=== PATIENT | female | born 1960 | race Caucasian/White ===

== ENCOUNTER 2020-11-27 14:11 | Observation (INO) | payer SELFPAY ==
[2020-11-27 15:00] LABS: #Basophils 0.1 thou/uL (0.0-0.2); #Eosinphils 0.1 thou/uL (0.0-0.7); #Lymphocytes 1.9 thou/uL (1.20-3.40); #Monocytes 0.6 thou/uL (0.11-0.59); #Neutrophils 4.4 thou/uL (1.40-6.50); %Basophils 1.2 % (0.0-1.0); %Eosinophils 0.7 % (0.0-10.0); %Lymphocytes 26.9 % (21.0-51.0); %Monocytes 8.8 % (0.0-10.0); %Neutrophils 62.4 % (42.0-75.0); Hemoglobin 14.1 g/dL (12.0-16.0); Mean Corpuscular HGB CONC 35.6 g/dL (32.0-36.0); Mean Corpuscular Hemoglobin 33.2 pg (27.0-31.0); Mean Corpuscular Volume 93.1 fL (78.0-98.0); Mean Platelet Volume 7.5 fL (7.4-10.4); Platelet Count 381 thou/uL (130-400); RBC Distribution Width 11.7 % (11.5-14.5); Red Blood Cell (RBC) Count 4.25 mill/uL (4.20-5.40); White Blood Cell (WBC) Count 7.1 thou/uL (4.8-10.8)
[2020-11-27 15:28] LABS: ALT (SGPT) 16 U/L (8-55); AST (SGOT) 17 U/L (5-34); Albumin 4.4 g/dL (3.5-5.0); Alkaline Phosphatase 169 U/L (40-110); Anion Gap 14 mmol/L (10-20); BUN (Urea Nitrogen) 9 mg/dL (9.8-20.1); Bilirubin, Total 0.3 mg/dL (0.2-1.2); Calc. Creatinine Clearance 0 mL/min (70-130); Calcium 10.1 mg/dL (7.8-10.44); Carbon Dioxide 26 mmol/L (22-29); Chloride 101 mmol/L (98-107); Globulin 2.9 g/dL (2.4-3.5); Glucose 86 mg/dL (70-105); Potassium 3.2 mmol/L (3.5-5.1); Protein, Total 7.3 g/dL (6.0-8.3); Sodium 138 mmol/L (136-145)
[2020-11-27] MEDS ORDERED: Aspirin Chewable 81 MG TAB ONE (16:14)
[2020-11-27] MEDS ORDERED: Lidocaine Viscous Sol 2% 15 ml UD Cup ONE (16:14)
[2020-11-27] MEDS ORDERED: Mag-Al 1200 mg/1200 mg/30 ML UDCUP ONE (16:14)
[2020-11-27] MEDS ORDERED: Ketorolac Tromethamine 30 MG/ML VIAL ONE (16:24)
[2020-11-27 16:29] LABS: Bacteria/HPF None Seen HPF (None Seen); Bilirubin Negative (Negative); Blood, Urine 2+ (Negative); Clarity Clear (Clear); Glucose, Urine (Dipstick) Normal (Negative); Ketone, Urine Negative (Negative); Leukocyte Negative Leu/uL (Negative); Nitrite Negative (Negative); Protein, Urine (Dipstick) Negative (Neg-Trace); Specific Gravity, Urine 1.019 (1.002-1.036); Squamous Epithelial 0-3 HPF (0-3); Urobilinogen Normal mg/dL (Less than 2); WBC/HPF 0-3 HPF (0-3); pH, Urine 5.5 (5.0-9.0)
[2020-11-27] MEDS ORDERED: Nitroglycerin 0.4 MG TAB (25 Tab Bottle) SL PRN (17:59)
[2020-11-27 18:01] LABS: Troponin I Less than 0.010 ng/mL (< 0.028)
[2020-11-27] MEDS ORDERED: Potassium Chloride 20 MEQ TAB PO SCH (18:15)
[2020-11-27 20:50] VITALS: BMI 22.5
[2020-11-27 21:20] LABS: Troponin I Less than 0.010 ng/mL (< 0.028)
[2020-11-27] MEDS: Morphine 4 MG/ML VIAL SLOW IVP PRN (21:32)
[2020-11-28] MEDS ORDERED: CODEINE PO PRN (00:59)
[2020-11-28] MEDS ORDERED: FIORICET PO PRN (00:59)
[2020-11-28] MEDS: Morphine 4 MG/ML VIAL SLOW IVP PRN ×3 (01:32→10:42)
[2020-11-28 01:37] LABS: SARS-CoV-2 PCR by NAA Not Detected (NotDetected)
[2020-11-28] MEDS: Calcium Carbonate 500 MG ChewTAB PO PRN ×2 (03:24→10:42)
[2020-11-28 05:37] LABS: Cardiac Risk 3.3 (Less than 4.5)
[2020-11-28] MEDS ORDERED: Aspirin Chewable 81 MG TAB PO SCH (09:00)
[2020-11-28 12:12] VITALS: BP 136/70; TEMP 97.7
[2020-11-28] MEDS ORDERED: ADENOSINE 60 MG/20 ML VIAL ONE (12:24)
== END 2020-11-28 14:50 | disposition home or self-care (01) ==
LOC: ERS 14:11 → 2SW 16:45
PROVIDERS: ADMIT Internal Medicine; ATTEND Internal Medicine
DX: R07.89 Other chest pain (principal); R06.02 Shortness of breath; G43.909 Migraine, unspecified, not intractable, without status migrainosus; I10 Essential (primary) hypertension; F17.210 Nicotine dependence, cigarettes, uncomplicated; E87.6 Hypokalemia; Z79.899 Other long term (current) drug therapy; Z88.0 Allergy status to penicillin; Z88.2 Allergy status to sulfonamides; Z88.8 Allergy status to other drugs, medicaments and biological substances; Z20.822 Contact with and (suspected) exposure to COVID-19
CPT/HCPCS: 36415; 71046; 78452; 80053; 80061; 81003; 81015; 83735; 84443; 84484; 85025; 85379; 87635; 93005; 93010; 93017; 93306; 94760; 96374; 96375; 96376; A9500; G0378; J0153; J1885; J2270; U0003; U0005

== ENCOUNTER 2023-07-19 21:12 | Observation (INO) | payer SELFPAY ==
[2023-07-19 22:00] LABS: #Basophils 0.1 thou/uL (0.0-0.2); #Eosinphils 0.1 thou/uL (0.0-0.7); #Monocytes 0.7 thou/uL (0.11-0.59); #Neutrophils 4.6 thou/uL (1.40-6.50); %Basophils 1.1 % (0.0-1.0); %Eosinophils 1.5 % (0.0-10.0); %Lymphocytes 34.4 % (21.0-51.0); %Monocytes 8.5 % (0.0-10.0); %Neutrophils 53.8 % (42.0-75.0); Hematocrit 36.5 % (36.0-47.0); Hemoglobin 12.4 g/dL (12.0-16.0); Mean Corpuscular Hemoglobin 31.5 pg (27.0-31.0); Mean Corpuscular Volume 92.6 fl (78.0-98.0); Mean Platelet Volume 10.2 fL (7.4-10.4); Platelet Count 306 10x3/uL (130-400); RBC Distribution Width 12.9 % (11.5-14.5); Red Blood Cell (RBC) Count 3.94 mill/uL (4.20-5.40); White Blood Cell (WBC) Count 8.6 10x3/uL (4.8-10.8)
[2023-07-19 22:25] LABS: ALT (SGPT) 24 U/L (8-55); AST (SGOT) 25 U/L (5-34); Albumin 4.2 g/dL (3.4-4.8); Alkaline Phosphatase 194 U/L (40-110); Anion Gap 13 mmol/L (10-20); BUN (Urea Nitrogen) 22 mg/dL (9.8-20.1); Bilirubin, Total Less than 0.2 mg/dL (0.2-1.2); Calc. Creatinine Clearance 0 mL/min (70-130); Calcium 8.7 mg/dL (7.8-10.44); Carbon Dioxide 26 mmol/L (23-31); Chloride 101 mmol/L (98-107); Estimated GFR 82; Globulin 2.6 g/dL (2.4-3.5); Glucose 83 mg/dL (80-115); Potassium 3.9 mmol/L (3.5-5.1); Protein, Total 6.8 g/dL (5.8-8.1); Sodium 136 mmol/L (136-145)
[2023-07-19 22:29] LABS: Troponin I Less than 0.010 ng/mL (< 0.028)
[2023-07-19 22:35] LABS: SARS-CoV-2 NAA Rapid Test Not Detected (NotDetected)
[2023-07-19 22:42] LABS: Actual Bicarbonate (HCO3v) 27.6 mEq/L (22-28); Base Excess 1.3 mEq/L (-2.0 to +3.0); Calcium, Ionized (venous) 1.11 mmol/L (1.16-1.32); Chloride (VBG) 100 mmol/L (98-106); Hematocrit-VBG 39 % (36.0-47.0); Hemoglobin (Hb) 13.2 g/dL (11.7-16.0); Potassium (VBG) 3.69 mmol/L (3.70-5.30); Sodium 137 mmol/L (133-146); pH (venous) 7.354 (7.32-7.43)
[2023-07-19] MEDS ORDERED: Ketorolac Tromethamine 30 MG (1 mL) VIAL ONE (22:54)
[2023-07-19] MEDS ORDERED: Acetaminophen 500 MG TAB ONE (22:54)
[2023-07-19 23:32] LABS: Bacteria/HPF None Seen HPF (None Seen); Bilirubin Negative (Negative); Blood, Urine 2+ (Negative); CAUTI Indications for Culture Pelvic or flank pain; Clarity Clear (Clear); Glucose, Urine (Dipstick) Normal (Negative); Ketone, Urine Negative (Negative); Leukocyte Negative Leu/uL (Negative); Nitrite Negative (Negative); Protein, Urine (Dipstick) Negative (Neg-Trace); Specific Gravity, Urine 1.022 (1.002-1.036); Squamous Epithelial None Seen HPF (0-3); Urobilinogen Normal mg/dL (Less than 2); WBC/HPF 0-3 HPF (0-3)
[2023-07-19 23:35] LABS: Urine Culture Reflex No No
[2023-07-20] MEDS ORDERED: Albuterol 2.5 MG (0.5 mL) NEB ONE (01:26)
[2023-07-20] MEDS ORDERED: predniSONE 20 MG TAB ONE (01:26)
[2023-07-20] MEDS ORDERED: LevoFLOXacin 500 MG TAB ONE (01:26)
[2023-07-20] MEDS ORDERED: Ipratropium/Albuterol 3 ML NEB ONE (01:26)
[2023-07-20] MEDS ORDERED: Acetaminophen 325 MG TAB PO PRN (01:30)
[2023-07-20] MEDS ORDERED: Ondansetron ODT 4 MG TAB SL PRN (01:30)
[2023-07-20] MEDS ORDERED: Ondansetron PF 4 MG/2 ML Vial IVP PRN (01:30)
[2023-07-20 02:10] VITALS: BMI 24.0
[2023-07-20 02:34] LABS: Troponin I Less than 0.010 ng/mL (< 0.028)
[2023-07-20] MEDS ORDERED: Morphine 2 MG/ML VIAL SLOW IVP PRN (04:07)
[2023-07-20] MEDS ORDERED: Morphine 2 MG/ML VIAL ONE (04:15)
[2023-07-20 04:29] LABS: Amphetamine Not Detected (NotDetected); Barbiturates Screen Detected (NotDetected); Benzodiazepine Screen Not Detected (NotDetected); Cocaine Metabolite Screen Not Detected (NotDetected); Methadone Not Detected (NotDetected); Methamphetamine Not Detected (NotDetected); Opiate Screen Detected (NotDetected); Oxycodone Screen Not Detected (NotDetected); Phencyclidine (PCP) Not Detected (NotDetected); THC/Cannabinoid Screen Not Detected (NotDetected); Tricyclic Screen Not Detected (NotDetected)
[2023-07-20 05:19] LABS: Troponin I Less than 0.010 ng/mL (< 0.028)
[2023-07-20] MEDS ORDERED: Fioricet 325/50/40 mg Tablet PO PRN (08:48)
[2023-07-20] MEDS ORDERED: Morphine IR 10 MG/5 ML UDCUP PO PRN (08:50)
[2023-07-20] MEDS ORDERED: Ibuprofen 200 MG TAB PO PRN (08:56)
[2023-07-20] MEDS ORDERED: Amitriptyline HCl 25 MG TAB PO SCH (09:00)
[2023-07-20] MEDS ORDERED: Gabapentin 100 MG CAP PO SCH (09:00)
[2023-07-20] MEDS ORDERED: FLUoxetine HCl 20 MG CAP PO SCH (09:00)
[2023-07-20] MEDS ORDERED: Fioricet 325/50/40 mg Tablet ONE (09:18)
[2023-07-20] MEDS ORDERED: Gabapentin 100 MG CAP ONE (09:18)
[2023-07-20] MEDS ORDERED: Ibuprofen 200 MG TAB ONE (09:18)
[2023-07-20] MEDS ORDERED: Ondansetron PF 4 MG/2 ML Vial ONE (09:19)
[2023-07-20 11:10] VITALS: BP 106/73; TEMP 98.4
[2023-07-20] MEDS ORDERED: Gabapentin 300 MG CAP PO SCH (21:00)
== END 2023-07-20 11:50 | disposition left against medical advice (07) ==
LOC: ERS 21:12 → ERHOLD 07-20 01:16
PROVIDERS: ADMIT Internal Medicine; ATTEND Family Medicine
DX: R55 Syncope and collapse (principal); I10 Essential (primary) hypertension; F41.9 Anxiety disorder, unspecified; F32.A Depression, unspecified; F17.200 Nicotine dependence, unspecified, uncomplicated; G89.29 Other chronic pain; R82.5 Elevated urine levels of drugs, medicaments and biological substances; Z79.899 Other long term (current) drug therapy; Z88.0 Allergy status to penicillin; Z88.2 Allergy status to sulfonamides; Z88.8 Allergy status to other drugs, medicaments and biological substances; Z90.710 Acquired absence of both cervix and uterus; Z90.49 Acquired absence of other specified parts of digestive tract; Z90.89 Acquired absence of other organs; Z98.890 Other specified postprocedural states
CPT/HCPCS: 36415; 36416; 70450; 71045; 72125; 80053; 80306; 81001; 82805; 84484; 85025; 85379; 93880; 96360; 96375; G0378; J1885; J2272; J2405; J7512; J7611; J7620

== ENCOUNTER 2024-07-27 11:31 | Emergency (ER) | payer OTHER ==
[2024-07-27 12:47] LABS: #Basophils 0.06 10x3/uL (0.0-0.2); %Basophils 1.3 % (0.0-1.0); %Eosinophils 1.6 % (0.0-10.0); %Neutrophils 52.9 % (42.0-75.0); Hematocrit 38.4 % (36.0-47.0); Hemoglobin 12.7 g/dL (12.0-16.0); Mean Corpuscular HGB CONC 33.1 g/dL (32.0-36.0); Mean Corpuscular Hemoglobin 31.2 pg (27.0-31.0); Mean Corpuscular Volume 94.3 fL (78.0-98.0); Mean Platelet Volume 10.4 fL (7.4-10.4); Platelet Count 301 10x3/uL (130-400); Red Blood Cell (RBC) Count 4.07 mill/uL (4.20-5.40)
[2024-07-27 13:05] LABS: ALT (SGPT) 21 U/L (8-55); AST (SGOT) 43 U/L (5-34); Albumin 3.8 g/dL (3.4-4.8); Alkaline Phosphatase 177 U/L (40-110); Anion Gap 11 mmol/L (10-20); BUN (Urea Nitrogen) 12 mg/dL (9.8-20.1); Bilirubin, Total 0.2 mg/dL (0.2-1.2); Calc. Creatinine Clearance 0 mL/min (70-130); Carbon Dioxide 28 mmol/L (23-31); Chloride 105 mmol/L (98-107); Estimated GFR 98; Globulin 3.6 g/dL (2.4-3.5); Glucose 89 mg/dL (80-115); Lipase 13 U/L (8-78); Potassium 3.5 mmol/L (3.5-5.1); Protein, Total 7.4 g/dL (5.8-8.1); Sodium 140 mmol/L (136-145)
[2024-07-27] MEDS ORDERED: Ondansetron PF 4 MG/2 ML Vial ONE (14:16)
[2024-07-27 14:27] LABS: Bacteria/HPF None Seen HPF (None Seen); Bilirubin Negative (Negative); Blood, Urine 2+ (Negative); CAUTI Indications for Culture Pelvic or flank pain; Clarity Clear (Clear); Glucose, Urine (Dipstick) Normal (Negative); Ketone, Urine Negative (Negative); Leukocyte Negative Leu/uL (Negative); Nitrite Negative (Negative); Protein, Urine (Dipstick) Negative (Neg-Trace); Specific Gravity, Urine 1.023 (1.002-1.036); Squamous Epithelial 0-3 HPF (0-3); Urobilinogen Normal mg/dL (Less than 2); WBC/HPF 0-3 HPF (0-3); pH, Urine 5.5 (5.0-9.0)
[2024-07-27 14:28] LABS: Urine Culture Reflex No No
[2024-07-27] MEDS ORDERED: Acetaminophen 500 MG TAB ONE (15:00)
[2024-07-27] MEDS ORDERED: Iopamidol 370 76% 100 ML VIAL ONE (15:33)
== END 2024-07-27 15:39 | disposition home or self-care (01) ==
LOC: ERS 11:31
DX: K59.00 Constipation, unspecified (principal); K52.9 Noninfective gastroenteritis and colitis, unspecified; I10 Essential (primary) hypertension
CPT/HCPCS: 36415; 74177; 80053; 81001; 83605; 83690; 85025; 87086; 96360; J2405; Q9967

== ENCOUNTER 2024-08-07 22:06 | Emergency (ER) | payer OTHER ==
[~2024-08-07 22:06] MED LIST: Iopamidol-370 76% 500 ML MDV (1 ML CHARGE) ONE
[2024-08-07] MEDS ORDERED: Ondansetron ODT 4 MG TAB ONE (23:48)
[2024-08-07] MEDS ORDERED: Morphine 4 MG/ML VIAL ONE (23:48)
[2024-08-08 00:40] LABS: Troponin I Less than 0.010 ng/mL (< 0.028)
[2024-08-08 00:40] LABS: Bacteria/HPF None Seen HPF (None Seen); Bilirubin Negative (Negative); Blood, Urine 2+ (Negative); CAUTI Indications for Culture Pelvic or flank pain; Clarity Clear (Clear); Glucose, Urine (Dipstick) Normal (Negative); Ketone, Urine Negative (Negative); Leukocyte 25 Leu/uL (Negative); Nitrite Negative (Negative); Protein, Urine (Dipstick) Negative (Neg-Trace); Squamous Epithelial 0-3 HPF (0-3); Urobilinogen Normal mg/dL (Less than 2)
[2024-08-08 00:51] LABS: #Basophils 0.06 10x3/uL (0.0-0.2); %Basophils 0.9 % (0.0-1.0); %Eosinophils 0.9 % (0.0-10.0); %Lymphocytes 28.7 % (21.0-51.0); %Monocytes 6.8 % (0.0-10.0); %Neutrophils 62.4 % (42.0-75.0); Hematocrit 38.3 % (36.0-47.0); Hemoglobin 12.8 g/dL (12.0-16.0); Mean Corpuscular HGB CONC 33.4 g/dL (32.0-36.0); Mean Corpuscular Hemoglobin 31.2 pg (27.0-31.0); Mean Corpuscular Volume 93.4 fL (78.0-98.0); Mean Platelet Volume 10.1 fL (7.4-10.4); Platelet Count 331 10x3/uL (130-400); RBC Distribution Width 12.6 % (11.5-14.5)
[2024-08-08 00:54] LABS: Specific Gravity, Urine Less than 1.060 (1.002-1.036); Urine Culture Reflex No No
[2024-08-08] MEDS ORDERED: Ondansetron PF 4 MG/2 ML Vial ONE (02:58)
[2024-08-08 06:08] LABS: ALT (SGPT) 12 U/L (Less than 34); AST (SGOT) 30 U/L (11-34); Albumin 3.9 g/dL (3.1-4.5); Alkaline Phosphatase 159 U/L (40-110); Anion Gap 15 mmol/L (10-20); BUN (Urea Nitrogen) 20 mg/dL (9.8-20.1); Bilirubin, Total 0.1 mg/dL (0.3-1.2); Calc. Creatinine Clearance 0 mL/min (70-130); Carbon Dioxide 22 mmol/L (23-31); Chloride 101 mmol/L (98-107); Estimated GFR 81; Globulin 3.1 g/dL (2.4-3.5); Glucose 92 mg/dL (80-115); Lipase 7 U/L (8-78); Magnesium 1.9 mg/dL (1.6-2.6); Potassium 3.4 mmol/L (3.5-5.1); Sodium 135 mmol/L (136-145)
== END 2024-08-08 03:48 | disposition home or self-care (01) ==
LOC: ERS 22:06
DX: K59.00 Constipation, unspecified (principal); R11.0 Nausea; I10 Essential (primary) hypertension
CPT/HCPCS: 36415; 71045; 74177; 80053; 81001; 83605; 83690; 83735; 84484; 85025; 93005; 96374; 96375; J2270; J2405; Q0162; Q9967